=== PATIENT | female | born 1980 | race Caucasian/White ===

== ENCOUNTER 2017-01-17 11:27 | Emergency (ER) | payer MEDICAID ==
--- NOTE | ~2017-01-17 | ER ---
PATIENT'S NAME: LULY ANN Clotilde [facility] AGE: 36 Y [address] ROOM: [place] [id number] LOCATION: ED ADMIT DATE: 01/17/2017 ER/Outpatient Report DISCHARGE DATE: 01/17/2017 FAMILY PHYSICIAN: Gloria Woods MD ATTENDING PHYSICIAN: Camille Richard Time of Arrival: 1127 hours. Time of Evaluation: 1136 hours. IDENTIFICATION: A 36-year-old female. CHIEF COMPLAINT: Left foot swelling and pain. HISTORY OF PRESENT ILLNESS: The patient complains of left foot swelling and pain for the last 7 days. Hurts from her toes up to her ankle. No known injury. No redness. No fever or chills. She has had shortness of breath for the last 2 days. PAST MEDICAL HISTORY: ALLERGIES: FLAGYL. CURRENT MEDICATIONS: 1. Apriso 0.375 four tablets daily. 2. Lexapro 10 mg daily. 3. Wellbutrin 300 mg daily. 4. BuSpar 10 mg daily. 5. Omeprazole [id number]. MEDICAL PROBLEMS: Crohn disease, depression, and anxiety. PRIOR SURGERIES: Normal vaginal delivery x1 and cholecystectomy. SOCIAL HISTORY: The patient lives in [place]. Works at [employer]. Tobacco use, denies. Alcohol use, denies. Drug use, denies. FAMILY HISTORY: Mother with Crohn disease. Father with throat cancer, [place], and had clots and an IVC filter. PATIENT'S NAME: LULY JOHNS [facility] AGE: 36 Y [address] ROOM: [place] [address] LOCATION: ED ADMIT DATE: 01/17/2017 ER/Outpatient Report DISCHARGE DATE: 01/17/2017 FAMILY PHYSICIAN: Gloria Woods MD ATTENDING PHYSICIAN: Camille Richard REVIEW OF SYSTEMS: Negative other than what is noted in the HPI. Last menstrual period was 1 year ago. She is a G1, P0, delivered a baby in 2006 vaginally. Her periods are irregular and she has not had a regular period for one year. PHYSICAL EXAMINATION: VITAL SIGNS: Weight 157.5 kg, blood pressure 153/76, pulse 95, respirations 17, temperature 98.4, and saturations 100% on room air. GENERAL: A 36-year-old female, in no acute distress. HEENT: Head: Normocephalic and atraumatic. Ears: TMs not visualized. Eyes: Pupils equal and reactive to light and accommodation. Extraocular movements intact. Nose: Mucosa pink. No lesions or drainage. Mouth: No lesions. Pharynx benign. NECK: Supple. No lymphadenopathy. LUNGS: Clear to auscultation. Breath sounds are equal. No rhonchi, wheezes, or rales. HEART: Regular rate and rhythm. No murmur, rub, or gallop. ABDOMEN: Bowel sounds present. Soft. Nondistended. No hepatosplenomegaly. No palpable masses. Nontender. SKIN: [place], warm, and dry. No lesions or rashes noted. NEURO: The patient is alert and oriented x4. Cranial nerves II through XII grossly intact. Motor strength 5/5 throughout. Sensation is intact to light touch. EXTREMITIES: She does have left lower extremity edema in her foot and ankle. Slight left calf swelling, but no calf tenderness. On the left lower extremity, she has no bony tenderness. She is little bit tender on the medial aspect of the ankle. LABORATORY DATA AND X-RAYS: X-ray of her left foot and ankle showed no acute findings, pending Radiology over-read. Because of her shortness of breath over the last 2 days, we did do a chest x-ray, which showed no acute process, pending Radiology over-read. EKG showed sinus rhythm at 94 beats per minute, no acute ST elevation or depression. Venous Doppler of her left lower extremity is negative. Quantitative beta-hCG less than 1. D-dimer elevated at 0.88. Sodium 140, potassium 3.8, chloride 112, CO2 of 25, BUN 7, creatinine 0.6, blood sugar 128, and albumin 2.7. Hemoglobin 10.7, hematocrit 35.2, platelets 138, and white count 5.8. INR 1.08. CT/PE protocol, no PE. No previous hemoglobin or platelet count to compare to. IMPRESSION AND PLAN: 1. Left ankle swelling, no acute etiology identified, no clot identified, and no fracture. Plan: GOVIND, ice, elevate, crutches, and weightbearing as tolerated. Follow up with Dr. Woods in 3 to 7 days. PATIENT'S NAME: ANN MAURICIO [facility] AGE: 36 Y [address] ROOM: [place] [id number] LOCATION: [facility] ADMIT DATE: 01/17/2017 ER/Outpatient Report DISCHARGE DATE: 01/17/2017 FAMILY PHYSICIAN: Gloria Woods MD ATTENDING PHYSICIAN: Camille Richard 2. Mild anemia. 3. Thrombocytopenia. 4. Low albumin. 5. Shortness of breath x2 days and elevated D-dimer. She is not hypoxic. She has no evidence of pulmonary embolism and no evidence of pneumonia. Follow up with Dr. Woods in 3 to 7 days. Follow up sooner if any problems or concerns. 6. Crohn disease. She said her Crohn's has been stable with no recent flare. All questions have been answered. CAMILLE RICHARD MD CAR/modl /[id number] d: 01/17/179 t: 01/18/17 1029, OUTPATIENT REPORT
--- NOTE | ~2017-01-17 | ENPV ---
Vascular Lower Extremities DVT Study Procedure Demographics Patient Name ANN MAURICIO Date of Study 01/17/2017 Patient Number [id number] Gender Female Date of 1980 Age 36 Visit Number [id number] Height Accession Number [id number] Weight Room Number BSA BMI Referring Chuck Gloria Britt MD Interpreting Mabel Liu Physician Physician Physician Ordering Physician Jose Manuel Obrien MD [employer] Work Instructor Antonio Barnett [facility], [facility] Conclusions Summary TECHNIQUE: The veins of the lower extremity on the left were evaluated from the groin to the ankle using kaminski scale, compression, augmentation. Venous hemodynamics were evaluated with color flow and spectral Doppler. FINDINGS: Normal venous duplex study of the left lower extremity. There is no evidence of deep or superficial venous thrombosis. The right common femoral vein was imaged as well and found to be negative. IMPRESSION: NEGATIVE LEFT LOWER EXTREMITY VENOUS DOPPLER. Procedure Type of Study: Veins:Lower Extremities DVT Study, Lower Extremity Left. Indications for Study:Pain in Limb and Swelling of Limb. Appropriate Use Criteria:9 Patient Status:STAT. Study Location:ER. Technical Quality:Adequate visualization. - Preliminary reported to:Dr. Richard. Velocities are measured in cm/s ; Diameters are measured in cm Left Lower Extremities DVT Study Measurements Left 2D and Doppler Measurements + + + + +------+------+ + !Location !Visualized!Compressibility!Thrombosis!Signal!Reflux!Reflux ! ! ! ! ! ! ! !(sec) ! + + + + +------+------+ + !GSV Thigh !Yes !Yes !None !Phasic! ! ! + + + + +------+------+ + !Common !Yes !Yes !None !Phasic! ! ! !Femoral ! ! ! ! ! ! ! + + + + +------+------+ + !Prox !Yes !Yes !None !Phasic! ! ! !Femoral ! ! ! ! ! ! ! + + + + +------+------+ + !Mid Femoral!Yes !Yes !None ! ! ! ! + + + + +------+------+ + !Dist !Yes !Yes !None !Phasic! ! ! !Femoral ! ! ! ! ! ! ! + + + + +------+------+ + !Popliteal !Yes !Yes !None !Phasic! ! ! + + + + +------+------+ + !Gastroc !Yes !Yes !None ! ! ! ! + + + + +------+------+ + !PTV !Yes !Yes !None ! ! ! ! + + + + +------+------+ + !Peroneal !Yes !Yes !None ! ! ! ! + + + + +------+------+ + Signature dtt: Benjamin Monroe dtd: 01/17/17 1238 Physician Self [place]
[2017-01-17 12:10] LABS: BASOPHIL % 0.5 %; EOSINOPHIL # 0.2 K/uL (0.0-0.5); EOSINOPHIL % 2.6 %; HEMATOCRIT 35.2 % (33.0-46.0); HEMOGLOBIN 10.7 g/dL (11.0-15.0); IMMATURE GRANULOCYTE % 0.3 %; LYMPHOCYTE # 1.9 K/uL (0.8-4.0); LYMPHOCYTE % 32.8 %; MCH 25.5 pg (27.0-34.0); MCHC 30.4 gm/dL (32.0-36.5); MONOCYTE # 0.4 K/uL (0.0-1.0); MONOCYTE % 7.2 %; NEUTROPHIL # (ANC) 3.3 K/uL (1.8-7.8); NEUTROPHIL % 56.6 %; NRBC % 0 /100WBC (0-0.00); PLATELET COUNT 138 K/uL (150-450); RBC 4.19 M/uL (3.50-5.50); RDW-CV 14.4 % (11.9-14.6); WBC 5.8 K/uL (4.0-11.0)
[2017-01-17 12:21] LABS: INR - (THERAPEUTIC) 1.08 (0.92-1.07); PROTIME 11.4 SECONDS (9.8-11.4); PTT 29 SECONDS (25-32)
[2017-01-17 12:29] LABS: ALBUMIN 2.7 gm/dL (3.5-5.0); ALK PHOS 155 IU/L (33-138); ALT 30 IU/L (12-78); ANION GAP 6.8 (10.0-19.0); AST 37 IU/L (10-40); BLOOD UREA NITROGEN 7 mg/dL (6-24); CALCIUM 8.3 mg/dL (8.5-10.5); CHLORIDE 112 mMol/L (96-110); CO2 25 mMol/L (22-32); CPK 67 IU/L (21-215); CREATININE 0.6 mg/dL (0.5-1.1); ESTIMATED GFR (MDRD EQUATION) > 60; MAGNESIUM 1.9 mg/dL (1.8-2.6); POTASSIUM 3.8 mMol/L (3.7-5.1); SODIUM 140 mMol/L (135-145); TOTAL BILIRUBIN 0.4 mg/dL (0.0-1.5); TOTAL PROTEIN 7.7 g/dL (6.0-8.4)
== END 2017-01-17 15:46 | disposition disaster alternative care site (69) ==
LOC: GMED 11:27
PROVIDERS: Family Medicine
DX: M25.472 Effusion, left ankle (principal); D64.9 Anemia, unspecified; D69.6 Thrombocytopenia, unspecified; K50.90 Crohn's disease, unspecified, without complications; F32.9 Major depressive disorder, single episode, unspecified; F41.9 Anxiety disorder, unspecified; Z88.1 Allergy status to other antibiotic agents; Z90.49 Acquired absence of other specified parts of digestive tract; Z79.899 Other long term (current) drug therapy